=== PATIENT | female | born 1935 | race Caucasian/White ===

== ENCOUNTER 2016-10-01 12:03 | Emergency (ER) | payer MEDICARE, BC ==
--- NOTE | ~2016-10-01 | CR72 ---
[facility] A Service of [facility] RADIOLOGY TEXT RESULTS PATIENT: MARLEY DAVEY LOCATION: [facility] : 35 UNIT #: [id number] AGE: [address]: David Friedman MD SEX: F ORDER DR: [id number] [facility] [address] [place], [place] [address] [id number] MR#: [id number] Acc #: [id number] NAME: MARLEY DAVEY : 1935 SEX: F STUDY DATE/TIME: 10/01/2016 11:39 UNIT: [facility] ROOM: STUDY DESCRIPTION: CR Chest Single View Portable Attending Physician: David Friedman M.D. Ordering Physician: David Friedman M.D. Primary Care Physician: Vicky Silva M.D. MEDICAL IMAGING REPORT This report is preliminary unless electronic signature is present EXAM Chest portable 10/01/2016 1139 hours HISTORY 81-year-old woman with confusion, shortness of air and near-syncopal episode today. Patient has history of hypertension, COPD on home oxygen therapy. COMPARISON 04/03/2016 FINDINGS Portable upright chest demonstrates normal cardiac, mediastinal and hilar contours. There is hazy and interstitial change in the right medial infrahilar region improved over the prior study. This could represent atelectasis or scar. There is underlying emphysematous change. No pleural effusion or pneumothorax. IMPRESSION There is a decrease in right medial basal density with some linear reticular change present likely atelectasis or scar. There is underlying emphysematous change with no definite pneumonia, edema or pleural effusion. Dictated by... Natasha Rider M.D. THIS IS AN ELECTRONICALLY VERIFIED REPORT Natasha Rider M.D. at 10/02/2016 9:38 AM JORGE/kellyr TD: 10/01/2016 17:17 JOB #: [id number] [facility] A Service of [facility] RADIOLOGY TEXT RESULTS PATIENT: MARLEY DAVEY LOCATION: [facility] : 35 UNIT #: [id number] AGE: [address]: David Friedman MD SEX: F ORDER DR: MEDICAL IMAGING REPORT Page 1 of 1 COPY
--- NOTE | ~2016-10-01 | EKG ---
PATIENT: MARLEY DAVEY UNIT #: [id number] Ventricular Rate: 59 BPM Atrial Rate: 59 BPM P-R Interval: 168 ms QRS Duration: 88 ms Q-T Interval: 422 ms QTC Calculation(Bezet): 417 ms P Newcomb: 61 degrees Calculated R Newcomb: -49 degrees Calculated T Newcomb: -2 degrees Diagnosis Line: Sinus bradycardia Diagnosis Line: Left anterior fascicular block Diagnosis Line: Cannot rule out Inferior infarct (cited on or Diagnosis Line: before 01-OCT-2016) Diagnosis Line: Anterolateral infarct (cited on or before Diagnosis Line: 01-OCT-2016) Diagnosis Line: Abnormal ECG Diagnosis Line: When compared with ECG of 14-DEC-2015 01:00, Diagnosis Line: Premature ventricular complexes are no longer Diagnosis Line: Present Diagnosis Line: Confirmed by GEORGE HURST [facility] ([id number][facility] on Diagnosis Line: 10/01/2016 2:29:11 PM INTERPRETING MD: ARIS KLEIN
[2016-10-01 11:47] LABS: URINE SOURCE CLEAN CATCH
[2016-10-01 11:51] LABS: BASOPHIL% 0.5 % (0-2.5); EOSINOPHIL# 0.1 X10e3 (0-0.7); EOSINOPHIL% 1.3 % (0.0-7.0); HEMATOCRIT 37.1 % (35.0-45.0); HEMOGLOBIN 12.2 gm/dL (12.0-16.0); LYMPHOCYTE# 1.2 X10e3 (1.0-3.5); LYMPHOCYTE% 23.1 % (17.0-45.0); MEAN CELL VOLUME 93.3 FL (83-96); MEAN CORPUSCULAR HEMOGLOBIN 30.6 PG (28-34); MEAN CORPUSCULAR HGB CONC 32.8 g/dL (30-36); MEAN PLATELET VOLUME 7.4 FL (6.5-11.5); MONOCYTE# 0.6 X10e3 (0-1.0); MONOCYTE% 11.2 % (3.0-12.0); NEUTROPHIL# 3.2 X10e3 (1.5-7.1); NEUTROPHIL% 63.9 % (40-75); PLATELET COUNT 249 X10e3 (140-420); RED BLOOD COUNT 3.98 X10e (3.90-5.30); RED CELL DISTRIBUTION WIDTH 14.4 % (11.0-15.5); WHITE BLOOD COUNT 5.1 X10e3 (4.0-10.5)
[2016-10-01 11:54] LABS: DIFF IND NO
[2016-10-01 11:56] LABS: URINE APPEARANCE CLEAR; URINE BILIRUBIN NEG (NEG); URINE BLOOD NEG (NEG); URINE COLOR YELLOW; URINE GLUCOSE NEG (NEG); URINE KETONE NEG (NEG); URINE LEUKOCYTE ESTERASE TRACE (NEG); URINE NITRATE NEG (NEG); URINE PROTEIN NEG (NEG); URINE SPECIFIC GRAVITY 1.021 (1.003-1.035)
[2016-10-01 11:58] LABS: U HYALINE CASTS AUWI 0-2 /[LPF]; URINE BACTERIA AUWI NEG (NEGATIVE); URINE SQUAMOUS EPITHELIAL CELL OCC /[HPF]; UWBCS1 AUWI 0-2 (0-5)
[2016-10-01 12:00] LABS: CULTURE INDICATED? NO
[~2016-10-01 12:03] MED LIST: ADVAIR 100-501 EAC1 IH; ADVAIR 100-501 EAC1 INH; ADVAIR 250-501 EACH IH; ALDACTAZIDE PO; AMLODIPINE BESYL5 MG PO; ASPIRIN81 M1 PO; ASPIRIN81 M2 PO; ASPIRINBUFF PO; BAYER ASPIRIN325 M1 PO; BENZONATATE PO; CADUET 5 MG/101 TAB PO; CADUET PO; CELEBREX; CELEBREX PO; CELECOXIB200 MG PO; CIPRO250 MG PO; CLOPIDOGREL75 MG PO; COMBIVENT U/D3 M2 INH; HCTZ PO; HYDROCHLOROTH12.5 M1 PO; INVANZ1 G/VIA1 IV; KCL PO; KLOR-CON SPRIN10 MEQ PO; LIPITOR; LIPITOR PO; MEDROL PO; MORGIDOX100 MG PO; NEXIUM; NEXIUM PO; NORVASC; NORVASC2.5 MG PO; OMEPRAZOLE20 M2 PO; OMEPRAZOLE40 MG PO; OXYGEN; PHENERGAN PO; POTASSIUM CHLO10 ME1 PO; PREDNISONE10 MG PO; SPIRIVA18 MCG INH; XANAX0.5 M1 PO; ZOFRAN ODT4 MG PO
[2016-10-01 12:18] LABS: ALBUMIN SERUM 3.4 g/dL (3.5-5.0); ALKALINE PHOSPHATASE 63 U/L (32-92); ALT (SGPT) 12 U/L (10-40); AST (SGOT) 21 U/L (10-42); BILIRUBIN, DIRECT 0.1 mg/dL (0.0-0.2); BILIRUBIN,INDIRECT 0.7 mg/dL (0.0-0.9); BILIRUBIN,TOTAL 0.8 mg/dL (0.2-2.0); BLOOD UREA NITROGEN 22 mg/dL (9-23); CALCIUM SERUM 8.7 mg/dL (8.4-10.2); CARBON DIOXIDE 24 mmol/L (22-31); CHLORIDE 112 mmol/L (100-111); CREATININE SERUM 0.8 mg/dL (0.6-1.4); GLOM FILT RATE Estimated ABOVE60 mL/min (>60); GLUCOSE FASTING 100 mg/dL (70-110); POTASSIUM 3.6 mmol/L (3.5-5.1); PROTEIN TOTAL SERUM 6.9 g/dL (6.0-8.3); SODIUM 140 mmol/L (135-145)
== END 2016-10-01 13:15 | disposition home or self-care (01) ==
LOC: CED 12:03
PROVIDERS: Emergency Medicine
DX: R55 Syncope and collapse (principal); I10 Essential (primary) hypertension; J44.9 Chronic obstructive pulmonary disease, unspecified; Z98.890 Other specified postprocedural states; Z88.2 Allergy status to sulfonamides; Z88.5 Allergy status to narcotic agent
CPT/HCPCS: 36415; 71010; 80048; 80076; 81003; 82947; 85025; 93005; 96360; 99285